=== PATIENT | female | born 1995 | race African-American/Black ===

== ENCOUNTER 2021-01-28 23:33 | Inpatient (IN) | payer MEDICAID, SELFPAY ==
[2021-01-28] MEDS ORDERED: hydrALAZINE 20 MG/ML VIAL SLOW IVP PRN (23:41)
[2021-01-28] MEDS ORDERED: Lactated Ringer's 1,000 ML IV SCH ×2 (23:45)
[2021-01-28] MEDS ORDERED: Sodium Chloride 0.9% 1,000 ML IV SCH (23:45)
[2021-01-28] MEDS ORDERED: Zolpidem Tartrate 5 MG TAB PO PRN (23:59)
[2021-01-28] MEDS ORDERED: cefTRIAXone\\ROCEPHIN 1 GM in Sodium Chloride 0.9% 100 ML IVPB SCH (23:59)
[2021-01-29] MEDS: traMADol HCl 50 MG TAB PO PRN ×2 (00:30→15:13)
[2021-01-29] MEDS: Morphine 4 MG/ML VIAL SLOW IVP PRN ×4 (01:45→16:44)
[2021-01-29] MEDS: 1/2 NS w/KCL 20 mEq 1,000 ML IV SCH ×4 (03:30→19:59)
[2021-01-29] MEDS: Acetaminophen 500 MG TAB PO PRN ×3 (03:35→20:45)
[2021-01-29 06:09] VITALS: BMI 32.4
[2021-01-29] MEDS: Ondansetron PF 4 MG/2 ML Vial IVP PRN ×2 (08:52→15:41)
[2021-01-29 10:17] LABS: HIV (1/2) Antibody/Antigen Non-Reactive (NonReactive); HIV 1/2 INDEX 0.11 S/CO (<1.00); Hep B Surf Ag Non-Reactive S/CO (NonReactive)
[2021-01-29 10:18] LABS: Syphilis Antibody Nonreactive (Nonreactive); Syphilis Antibody Index 0.16 S/CO (<1.00 Non-Reactive)
[2021-01-29 10:20] LABS: HBSAg Index 0.16 S/CO (0-0.99)
[2021-01-29] MEDS: cefTRIAXone\\ROCEPHIN 1 GM in Sodium Chloride 0.9% 100 ML IVPB SCH ×2 (11:35→23:05)
[2021-01-29 18:41] LABS: SARS-CoV-2 PCR by NAA Not Detected (NotDetected)
[2021-01-30] MEDS: Acetaminophen 500 MG TAB PO PRN ×3 (03:12→20:06)
[2021-01-30] MEDS: Morphine 4 MG/ML VIAL SLOW IVP PRN ×5 (03:15→20:07)
[2021-01-30] MEDS: 1/2 NS w/KCL 20 mEq 1,000 ML IV SCH ×2 (08:33→17:35)
[2021-01-30] MEDS: cefTRIAXone\\ROCEPHIN 1 GM in Sodium Chloride 0.9% 100 ML IVPB SCH ×2 (12:04→23:58)
[2021-01-30] MEDS: traMADol HCl 50 MG TAB PO PRN (17:32)
[2021-01-30 18:21] LABS: #Monocytes 0.6 10x3/uL (0.0-1.1); #Neutrophils 6.7 10x3/uL (1.5-8.4); %Basophils 0.2 % (0.0-2.0); %Eosinophils 0.1 % (0.0-6.0); %Lymphocytes 13.1 % (18.0-47.0); %Monocytes 6.9 % (0.0-10.0); %Neutrophils 78.8 % (40.0-75.0); Hemoglobin 10.2 g/dL (12.0-15.5); Mean Corpuscular Hemoglobin 29.5 pg (27.0-33.0); Mean Corpuscular Volume 89.3 fl (81.6-98.3); Mean Platelet Volume 10.4 fl (7.4-10.4); Platelet Count 292 10x3/uL (150-450); RBC Distribution Width 13.2 % (11.5-14.5); Red Blood Cell (RBC) Count 3.46 10x6/uL (3.90-5.03); White Blood Cell (WBC) Count 8.5 10x3/uL (3.5-10.5)
[2021-01-30 18:35] LABS: Lactic Acid 2.6 mmol/L (0.5-2.2)
[2021-01-31] MEDS: Morphine 4 MG/ML VIAL SLOW IVP PRN ×4 (07:45→23:36)
[2021-01-31] MEDS: 1/2 NS w/KCL 20 mEq 1,000 ML IV SCH ×4 (12:25→23:41)
[2021-01-31] MEDS: cefTRIAXone\\ROCEPHIN 1 GM in Sodium Chloride 0.9% 100 ML IVPB SCH ×2 (12:26→23:38)
[2021-01-31 13:09] LABS: Amphetamine Not Detected (NotDetected); Barbiturates Screen Not Detected (NotDetected); Benzodiazepine Screen Not Detected (NotDetected); Cocaine Metabolite Screen Not Detected (NotDetected); Methadone Not Detected (NotDetected); Methamphetamine Not Detected (NotDetected); Opiate Screen Detected (NotDetected); Oxycodone Screen Not Detected (NotDetected); Phencyclidine (PCP) Not Detected (NotDetected); THC/Cannabinoid Screen Detected (NotDetected); Tricyclic Screen Not Detected (NotDetected)
[2021-01-31] MEDS: traMADol HCl 50 MG TAB PO PRN (19:16)
[2021-02-01] MEDS: Morphine 4 MG/ML VIAL SLOW IVP PRN ×4 (05:17→19:36)
[2021-02-01] MEDS: cefTRIAXone\\ROCEPHIN 1 GM in Sodium Chloride 0.9% 100 ML IVPB SCH ×2 (13:10→23:19)
[2021-02-01] MEDS: 1/2 NS w/KCL 20 mEq 1,000 ML IV SCH ×3 (13:10→23:20)
[2021-02-02] MEDS: Morphine 4 MG/ML VIAL SLOW IVP PRN (01:45)
[2021-02-02 08:12] VITALS: BP 123/69; TEMP 98.4
[2021-02-02] MEDS: traMADol HCl 50 MG TAB PO PRN (08:20)
== END 2021-02-02 09:00 | disposition home or self-care (01) | DRG 833 ==
LOC: CSHLD/OP 23:33 → OBSVTOIN 23:58 → UNDOADMOB 23:58 → INTOOBSV 23:58 → CSHPED 23:58 → OBSVTOIN 01-29 07:09 → UNDODISIN 02-02 09:00
PROVIDERS: ADMIT Obstetrics & Gynecology; ATTEND Obstetrics & Gynecology
DX: O23.02 Infections of kidney in pregnancy, second trimester (principal); Z3A.21 21 weeks gestation of pregnancy; Z20.822 Contact with and (suspected) exposure to COVID-19; B96.20 Unspecified Escherichia coli [E. coli] as the cause of diseases classified elsewhere; Z90.89 Acquired absence of other organs
CPT/HCPCS: 36415; 76770; 76856; 80053; 80306; 81003; 81015; 82570; 83605; 84156; 84702; 85025; 86762; 86780; 86850; 86900; 86901; 87077; 87086; 87186; 87340; 87389; 93976; 96365; 96375; G0378; J0696; J2270; J2405; J3480; J3490; U0003; U0005

== ENCOUNTER 2021-06-03 17:55 | Inpatient (IN) | payer MEDICAID, OTHER ==
[2021-06-03 18:33] VITALS: BMI 34.0
[2021-06-03 21:54] LABS: #Eosinphils 0.1 10x3/uL (0.0-0.5); #Monocytes 0.5 10x3/uL (0.0-1.1); #Neutrophils 4.7 10x3/uL (1.5-8.4); %Basophils 0.3 % (0.0-2.0); %Eosinophils 0.7 % (0.0-6.0); %Lymphocytes 28.5 % (18.0-47.0); %Neutrophils 63.1 % (40.0-75.0); Hemoglobin 9.3 g/dL (12.0-15.5); Mean Corpuscular HGB CONC 32.5 g/dL (32.0-36.0); Mean Corpuscular Hemoglobin 28.1 pg (27.0-33.0); Mean Corpuscular Volume 86.4 fl (81.6-98.3); Mean Platelet Volume 11.8 fl (7.4-10.4); Platelet Count 221 10x3/uL (150-450); RBC Distribution Width 13.8 % (11.5-14.5); Red Blood Cell (RBC) Count 3.31 10x6/uL (3.90-5.03); White Blood Cell (WBC) Count 7.4 10x3/uL (3.5-10.5)
[2021-06-03 22:06] LABS: ALT (SGPT) 13 U/L (8-55); AST (SGOT) 19 U/L (5-34); Albumin 3.2 g/dL (3.5-5.0); Alkaline Phosphatase 162 U/L (40-110); Anion Gap 10 mmol/L (10-20); BUN (Urea Nitrogen) 10 mg/dL (7.0-18.7); Bilirubin, Total 0.4 mg/dL (0.2-1.2); Calc. Creatinine Clearance 191 mL/min (70-130); Calcium 8.8 mg/dL (7.8-10.44); Carbon Dioxide 23 mmol/L (22-29); Chloride 109 mmol/L (98-107); Glucose 79 mg/dL (70-105); Potassium 3.8 mmol/L (3.5-5.1); Protein, Total 6.2 g/dL (6.0-8.3); Sodium 138 mmol/L (136-145); Uric Acid 3.9 mg/dL (2.6-6.0)
[2021-06-03 22:25] LABS: Amphetamine Not Detected (NotDetected); Barbiturates Screen Not Detected (NotDetected); Benzodiazepine Screen Not Detected (NotDetected); Cocaine Metabolite Screen Not Detected (NotDetected); Methadone Not Detected (NotDetected); Methamphetamine Not Detected (NotDetected); Opiate Screen Not Detected (NotDetected); Oxycodone Screen Not Detected (NotDetected); Phencyclidine (PCP) Not Detected (NotDetected); THC/Cannabinoid Screen Not Detected (NotDetected); Tricyclic Screen Not Detected (NotDetected)
[2021-06-03 22:33] LABS: Creatinine, Urine 122.72 mg/dL (47-110)
[2021-06-04] MEDS ORDERED: Ondansetron PF 4 MG/2 ML Vial IVP PRN ×2 (00:08→02:23)
[2021-06-04] MEDS ORDERED: Promethazine HCl 25 MG/ML VIAL IM PRN ×2 (00:08→02:23)
[2021-06-04] MEDS ORDERED: hydrALAZINE 20 MG/ML VIAL SLOW IVP PRN (00:08)
[2021-06-04 00:37] LABS: Hemoglobin 9.4 g/dL (12.0-15.5); Mean Corpuscular HGB CONC 32.1 g/dL (32.0-36.0); Mean Corpuscular Hemoglobin 27.8 pg (27.0-33.0); Mean Corpuscular Volume 86.7 fl (81.6-98.3); Mean Platelet Volume 12.1 fl (7.4-10.4); Platelet Count 222 10x3/uL (150-450); RBC Distribution Width 13.8 % (11.5-14.5); Red Blood Cell (RBC) Count 3.38 10x6/uL (3.90-5.03); White Blood Cell (WBC) Count 7.5 10x3/uL (3.5-10.5)
[2021-06-04] MEDS ORDERED: Lidocaine 1% (PF) 30 ML VIAL SC PRN (00:53)
[2021-06-04] MEDS ORDERED: NS w/ Oxytocin 30 units 500 ML IV SCH (01:00)
[2021-06-04] MEDS ORDERED: Fentanyl 2 mcg/Bup 0.1% Cadd 100 ML ONE ×2 (01:09→10:26)
[2021-06-04 01:12] LABS: Hep B Surf Ag Non-Reactive S/CO (NonReactive)
[2021-06-04 01:13] LABS: Syphilis Antibody Nonreactive (Nonreactive); Syphilis Antibody Index 0.11 S/CO (<1.00 Non-Reactive)
[2021-06-04 01:19] LABS: HBSAg Index 0.22 S/CO (0-0.99)
[2021-06-04 01:57] LABS: HIV (1/2) Antibody/Antigen Non-Reactive (NonReactive); HIV 1/2 INDEX 0.05 S/CO (<1.00)
[2021-06-04] MEDS ORDERED: Acetaminophen 325 MG TAB PO PRN (02:23)
[2021-06-04] MEDS ORDERED: Hydrocerin (Eucerin) Cream 120 gm Jar TOP PRN (02:23)
[2021-06-04] MEDS ORDERED: diphenhydrAMINE 50 MG/ML VIAL IVP PRN (02:23)
[2021-06-04] MEDS ORDERED: Lactated Ringer's 500 ML IV PRN (02:23)
[2021-06-04] MEDS ORDERED: Naloxone HCl 0.4 mg/ml Vial IVP PRN ×2 (02:23)
[2021-06-04] MEDS ORDERED: ePHEDrine Sulfate 50 MG/10 ML VIAL SLOW IVP PRN (02:23)
[2021-06-04] MEDS ORDERED: Communication Order-Pharmacy FS SCH (02:30)
[2021-06-04] MEDS: Lactated Ringer's 1,000 ML IV SCH ×3 (02:31→04:35)
[2021-06-04] MEDS ORDERED: Acetaminophen 500 MG TAB PO PRN (03:29)
[2021-06-04] MEDS ORDERED: NS w/ Oxytocin 30 units 500 ML IVPB SCH (03:30)
[2021-06-04 04:40] LABS: SARS-CoV-2 NAA Rapid Test Not Detected (NotDetected)
[2021-06-04] MEDS ORDERED: Bupivacaine 0.25% HCL 30 ML VIAL ONE (13:11)
[2021-06-04] MEDS ORDERED: Lidocaine 2% PF 5 ML VIAL ONE (13:11)
[2021-06-04] MEDS ORDERED: ePHEDrine Sulfate 50 MG/10 ML VIAL ONE (13:11)
[2021-06-04] MEDS ORDERED: Bupivacaine PF 0.5% 30 ML VIAL ONE (13:11)
[2021-06-04] MEDS: Fentanyl 2 mcg/Bupivacaine 0.1% Cassette 100 ML EPIDURAL SCH (19:04)
[2021-06-05] MEDS: Fentanyl 2 mcg/Bupivacaine 0.1% Cassette 100 ML EPIDURAL SCH ×2 (03:30→11:25)
[2021-06-05] MEDS: Lactated Ringer's 1,000 ML IV SCH ×2 (03:33→18:31)
[2021-06-05] MEDS ORDERED: Fentanyl 2 mcg/Bup 0.1% Cadd 100 ML ONE (11:24)
[2021-06-05] MEDS ORDERED: Bicitra 30 ML UDCUP PO PRN (12:16)
[2021-06-05] MEDS ORDERED: Famotidine/PF 20 mg/2ml Vial SLOW IVP PRN (12:16)
[2021-06-05] MEDS ORDERED: Azithromycin 500 MG in Sodium Chloride 0.9% 250 ML 250 ML IVPB SCH (12:30)
[2021-06-05] MEDS ORDERED: CEFAZOLIN 2 GM in Premix Bag 1 BAG IVPB SCH (12:30)
[2021-06-05] MEDS ORDERED: Famotidine/PF 20 mg/2ml Vial ONE (13:06)
[2021-06-05] MEDS ORDERED: Morphine PF 10 MG/10 ML VIAL ONE (13:33)
[2021-06-05] MEDS ORDERED: Oxytocin 10 UNITS/ML VIAL ONE ×2 (13:33→14:30)
[2021-06-05] MEDS ORDERED: Dexamethasone 4 mg/ml Vial ONE (13:33)
[2021-06-05] MEDS ORDERED: Ondansetron PF 4 MG/2 ML Vial ONE (13:33)
[2021-06-05] MEDS ORDERED: Ketorolac Tromethamine 30 MG/ML VIAL ONE (13:34)
[2021-06-05] MEDS ORDERED: Bupivacaine 0.5% 10 ML VIAL ONE (13:40)
[2021-06-05] MEDS ORDERED: Chloroprocaine 3% PF 20 ML VIAL FS SCH (13:45)
[2021-06-05 14:56] LABS: pH (Cord, venous) 7.168 (7.250-7.350)
[2021-06-05] MEDS ORDERED: Meperidine HCl/PF 25 MG/ML VIAL ONE ×2 (15:06→15:09)
[2021-06-05] MEDS ORDERED: Promethazine HCl 25 MG SUPP PR PRN (15:18)
[2021-06-05] MEDS ORDERED: Methylergonovine 0.2 MG/ML VIAL IM PRN (15:18)
[2021-06-05] MEDS ORDERED: Meperidine HCl/PF 25 MG/ML VIAL SLOW IVP PRN (15:18)
[2021-06-05] MEDS ORDERED: Lanolin Ointment 7 GM TUBE TOP PRN (15:18)
[2021-06-05] MEDS ORDERED: Hydrocerin (Eucerin) Cream 120 gm Jar TOP PRN (15:18)
[2021-06-05] MEDS ORDERED: Fentanyl 100 MCG/2 ML VIAL SLOW IVP PRN (15:18)
[2021-06-05] MEDS ORDERED: diphenhydrAMINE 50 MG/ML VIAL IVP PRN (15:18)
[2021-06-05] MEDS ORDERED: Naloxone HCl 0.4 mg/ml Vial IV PRN (15:18)
[2021-06-05] MEDS ORDERED: Misoprostol 200 MCG TAB PR PRN (15:18)
[2021-06-05] MEDS ORDERED: Ondansetron PF 4 MG/2 ML Vial IVP PRN (15:18)
[2021-06-05] MEDS ORDERED: Bisacodyl 10 MG SUPP PR PRN (15:18)
[2021-06-05] MEDS ORDERED: Ketorolac Tromethamine 30 MG/ML VIAL IVP PRN (15:18)
[2021-06-05] MEDS ORDERED: hydrALAZINE 20 MG/ML VIAL SLOW IVP PRN (15:18)
[2021-06-05] MEDS ORDERED: Boostrix 0.5 ML (Tdap) VIAL IM ONE (15:18)
[2021-06-05] MEDS ORDERED: Promethazine HCl 25 MG/ML VIAL IM PRN (15:18)
[2021-06-05] MEDS ORDERED: HYDROcodone/Acetaminophen 5/325 mg Tablet PO PRN ×3 (15:18→15:33)
[2021-06-05] MEDS ORDERED: Naloxone HCl 0.4 mg/ml Vial IVP PRN ×2 (15:18)
[2021-06-05] MEDS ORDERED: Ondansetron HCl/PF 4 MG/2 ML Vial IVP PRN (15:18)
[2021-06-05] MEDS ORDERED: Ketorolac Tromethamine 30 MG/ML VIAL IVP SCH (15:30)
[2021-06-05] MEDS ORDERED: Communication Order-Pharmacy FS SCH (15:30)
[2021-06-05] MEDS ORDERED: Misoprostol 200 MCG TAB ONE (15:50)
[2021-06-05] MEDS ORDERED: Carboprost 250 MCG/ML AMP ONE ×2 (15:51→16:02)
[2021-06-05] MEDS ORDERED: Tranexamic Acid 1,000 MG/10 ML VIAL ONE ×2 (16:02→16:15)
[2021-06-05] MEDS ORDERED: Diphenoxylate HCl/Atropine Tablet PO SCH (16:45)
[2021-06-05 16:47] LABS: Hemoglobin 8.7 g/dL (12.0-15.5)
[2021-06-05] MEDS ORDERED: Tranexamic Acid 1,000 MG/10 ML VIAL IVP SCH (17:00)
[2021-06-05 17:04] LABS: INR-International Normal Ratio 0.9; Prothrombin Time 10.2 sec (9.5-12.1)
[2021-06-05] MEDS ORDERED: Carboprost 250 MCG/ML AMP IM PRN (17:31)
[2021-06-05] MEDS: Docusate Calcium (SURFAK) 240 MG CAP PO SCH (21:13)
[2021-06-06 01:21] LABS: Hemoglobin 9.2 g/dL (12.0-15.5); Mean Corpuscular HGB CONC 33.3 g/dL (32.0-36.0); Mean Corpuscular Hemoglobin 27.1 pg (27.0-33.0); Mean Corpuscular Volume 81.2 fl (81.6-98.3); Mean Platelet Volume 11.8 fl (7.4-10.4); Platelet Count 204 10x3/uL (150-450); RBC Distribution Width 15.7 % (11.5-14.5); White Blood Cell (WBC) Count 13.9 10x3/uL (3.5-10.5)
[2021-06-06] MEDS ORDERED: Ibuprofen 800 MG TAB PO PRN (03:25)
[2021-06-06] MEDS: HYDROcodone/Acetaminophen 5/325 mg Tablet PO PRN ×2 (06:02→21:00)
[2021-06-06] MEDS: Acetaminophen 325 MG TAB PO SCH ×6 (07:35→21:00)
[2021-06-06] MEDS: Ibuprofen 600 MG TAB PO SCH ×3 (07:36→18:09)
[2021-06-06] MEDS: Prenatal Vitamin 1 TAB PO SCH (08:33)
[2021-06-06] MEDS: Docusate Calcium (SURFAK) 240 MG CAP PO SCH ×2 (08:33→21:00)
[2021-06-06] MEDS ORDERED: Fentanyl 100 MCG/2 ML VIAL SLOW IVP SCH (09:44)
[2021-06-06] MEDS ORDERED: Benzocaine-Menthol 82.5 ML CAN TOP PRN (11:43)
[2021-06-06] MEDS ORDERED: Morphine 4 MG/ML VIAL SLOW IVP SCH (15:00)
[2021-06-07] MEDS: Acetaminophen 325 MG TAB PO SCH ×5 (00:58→21:00)
[2021-06-07] MEDS: Ibuprofen 600 MG TAB PO SCH ×3 (01:00→15:00)
[2021-06-07] MEDS: HYDROcodone/Acetaminophen 5/325 mg Tablet PO PRN ×2 (01:00→05:35)
[2021-06-07] MEDS ORDERED: HYDROcodone/Acetaminophen 5/325 mg Tablet PO PRN (09:50)
[2021-06-07] MEDS: Docusate Calcium (SURFAK) 240 MG CAP PO SCH ×2 (16:53→21:17)
[2021-06-07] MEDS: Prenatal Vitamin 1 TAB PO SCH (16:53)
[2021-06-08] MEDS: Ibuprofen 600 MG TAB PO SCH ×5 (01:00→17:37)
[2021-06-08] MEDS: Acetaminophen 325 MG TAB PO SCH ×6 (01:00→22:20)
[2021-06-08] MEDS: Simethicone Chewable 80 MG TAB PO PRN ×2 (01:05→08:17)
[2021-06-08] MEDS: Docusate Calcium (SURFAK) 240 MG CAP PO SCH ×2 (08:17→22:24)
[2021-06-08] MEDS: Prenatal Vitamin 1 TAB PO SCH (08:17)
[2021-06-08] MEDS: Lactated Ringer's 1,000 ML IV SCH (09:22)
[2021-06-09] MEDS: Ibuprofen 600 MG TAB PO SCH ×3 (02:13→12:31)
[2021-06-09] MEDS: Acetaminophen 325 MG TAB PO SCH ×4 (02:14→12:30)
[2021-06-09] MEDS: Simethicone Chewable 80 MG TAB PO PRN ×2 (02:16→07:24)
[2021-06-09 08:32] VITALS: BP 135/85; TEMP 97.8
[2021-06-09] MEDS: Docusate Calcium (SURFAK) 240 MG CAP PO SCH (09:20)
[2021-06-09] MEDS: Prenatal Vitamin 1 TAB PO SCH (09:20)
== END 2021-06-09 15:04 | disposition home or self-care (01) | DRG 788 ==
LOC: CSHLD/OP 17:55 → CSHLD 17:56 → UNDOADMIN 17:56 → CSHLD 06-04 00:09 → CSHPP 06-05 20:48
PROVIDERS: ADMIT Obstetrics & Gynecology; ATTEND Obstetrics & Gynecology
PROC: 10D00Z1 Extraction of Products of Conception, Low, Open Approach (ICD-10-PCS; principal; 2021-06-05)
PROC: 10907ZC Drainage of Amniotic Fluid, Therapeutic from Products of Conception, Via Natural or Artificial Opening (ICD-10-PCS; 2021-06-05)
PROC: 3E033VJ Introduction of Other Hormone into Peripheral Vein, Percutaneous Approach (ICD-10-PCS; 2021-06-05)
PROC: 30233N1 Transfusion of Nonautologous Red Blood Cells into Peripheral Vein, Percutaneous Approach (ICD-10-PCS; 2021-06-05)
DX: O13.4 Gestational [pregnancy-induced] hypertension without significant proteinuria, complicating childbirth (principal); O76 Abnormality in fetal heart rate and rhythm complicating labor and delivery; O72.1 Other immediate postpartum hemorrhage; O61.0 Failed medical induction of labor; Z3A.39 39 weeks gestation of pregnancy; Z37.0 Single live birth; Z90.89 Acquired absence of other organs; D64.9 Anemia, unspecified; O99.02 Anemia complicating childbirth; O63.1 Prolonged second stage (of labor); Z20.822 Contact with and (suspected) exposure to COVID-19
CPT/HCPCS: 36415; 36430; 51702; 80053; 80306; 82570; 82805; 84156; 84550; 85014; 85018; 85025; 85027; 85384; 85610; 86780; 86850; 86900; 86901; 87081; 87340; 87389; 90715; 99285; J1100; J1200; J1885; J2175; J2270; J2274; J2400; J2405; J2550; J2590; J3010; J7120; P9016; U0002